=== PATIENT | male | born 1980 | race Caucasian/White ===

== ENCOUNTER 2025-07-29 21:07 | Emergency (ER) | payer OTHER ==
[~2025-07-29] VITALS: Ht 175.3 cm; Wt 80.0 kg
[2025-07-29 21:09] VITALS: O2SAT 97
[2025-07-29 22:03] LABS: BASOPHILS % 0.3 % (0.0-2.0); EOSINOPHILS % 3.4 % (0.0-5.0); HEMATOCRIT. 42.1 % (42.0-52.0); HEMOGLOBIN. 14.7 g/dL (14.0-18.0); LYMPHOCYTES % 30.3 % (20.0-50.0); MEAN PLATELET VOLUME 7.3 fl (7.4-10.4); MONOCYTES % 7.3 % (2.0-8.0); NEUTROPHILS % 58.7 % (40.0-76.0); PLATELET 223 x1000/uL (130-400); RED BLOOD CELL COUNT 4.91 mill/uL (4.7-6.1); RED CELL DISTRIBUTION WIDTH 13.6 % (11.6-14.6)
[2025-07-29 22:15] LABS: INR 1.0
[2025-07-29 22:21] LABS: CREATININE 1.1 mg/dL (0.6-1.3); TROPONIN I HIGH SENSITIVITY 6 ng/L (3.0-53); UREA NITROGEN BLOOD 12 mg/dL (9-23)
[2025-07-29 22:22] LABS: ASPARTATE AMINOTRANSFERASE 24 IU/L (<34)
[2025-07-29 22:23] LABS: BILIRUBIN DIRECT 0.1 mg/dL (<=3.0); BILIRUBIN TOTAL 0.6 mg/dL (0.1-1.0); PROTEIN TOTAL 6.6 g/dL (6.0-8.3)
[2025-07-29] MEDS: KETOROLAC 15MG/ML VIAL IV ONE (22:28)
[2025-07-30 00:03] LABS: TROPONIN I HIGH SENSITIVITY 7 ng/L (3.0-53)
[2025-07-30 01:21] VITALS: BP 124/55; PULSE 75; RESP 10; TEMP 37.1; O2SAT 99
[2025-07-30] MEDS: POTASSIUM CHLORIDE 20MEQ TABLET SR PO ONE (01:22)
[2025-07-30] MEDS: NITROGLYCERIN OINT 1GM/INCH UDPKT TD ONE (01:22)
== END 2025-07-30 02:08 | disposition short-term general hospital (02) ==
LOC: ER 21:07 → EDBEDREQTM 07-30 01:17 → EDBEDREQ 07-30 01:17 → EDBEDREQDT 07-30 01:17 → ER 07-30 02:08 → CMPBEDREQ 07-31 19:25
DX: R07.89 Other chest pain (principal); I10 Essential (primary) hypertension; E87.6 Hypokalemia; R06.02 Shortness of breath; F10.90 Alcohol use, unspecified, uncomplicated; Y90.9 Presence of alcohol in blood, level not specified
CPT/HCPCS: 99285; 96374; 71045; 80076; 80048; 83880; 83735; 85025; 85379; 85610; 85730; 84484; 36415; 93005; J1885